=== PATIENT | female | born 1970 | race Caucasian/White ===

== ENCOUNTER 2018-11-16 12:03 | Emergency (ER) | payer MEDICARE, SELFPAY ==
[2018-11-16 12:04] VITALS: BP 115/78; PULSE 88; RESP 24; TEMP 36.6; O2SAT 100; BMI 22.3
--- NOTE | 2018-11-16 12:57 | ED.DCSUM_ITS ---
History of Present Illness Chief Complaint: Lower Extremity Injury Detail of Chief Complaint: Left thigh and groin pain Informant: Patient Onset: Weeks Context: Gradual Onset Current Severity: Severe Maximum Severity: Severe Narrative: Patient presents with severe pain to the left groin, left lower back, and left thigh. Pain has been gradual in onset and persistent over the past week. Patient has a history of chronic back pain and has had 3 level back surgery in the past. Patient was previously in pain management but has not been for the last 3 or 4 years. She did see her primary care physician who ordered a venous ultrasound of her leg. This was performed yesterday at [facility] with no evidence of DVT. Patient states her PCP did not write her anything for pain. She has been taking ibuprofen without improvement. Past Medical History - Allergies and Home Meds Allergies/Adverse Reactions: Allergies aloe vera [From Flexall] Adverse Reaction (Verified 11/16/18 12:06) Other aloe vera extract [From Flexall] Adverse Reaction (Verified 11/16/18 12:06) Other gabapentin Adverse Reaction (Verified 11/16/18 12:06) Other menthol [From Flexall] Adverse Reaction (Verified 11/16/18 12:06) Other pregabalin [From Lyrica] Adverse Reaction (Verified 11/16/18 12:06) Other vitamin E (d-alpha tocopherol) [From Flexall] Adverse Reaction (Verified 11/16/18 12:06) Other Primary Care Physician: López Mckeon [Primary Care Provider] - Prior records reviewed: Yes Past Medical History: - - Reviewed Smoking Status: Current every day smoker Review of Systems General: Denies: Chills, Fever Eyes: Denies: Visual changes - bilaterally ENT: Denies: Bilateral ear pain Cardiovascular: Denies: Chest pain Respiratory: Denies: Dyspnea Gastrointestinal: Denies: Abdominal pain Genitourinary: Denies: Dysuria Musculoskeletal: Reports: Myalgias, Arthralgias Neurological: Denies: Parasthesia, Numbness Physical Exam Vital Signs/Narrative: Vital Signs Temp Pulse Resp BP Pulse Ox 11/16/18 12:04 98 F 88 24 H 115/78 100 Inital Vital Signs reviewed: Yes General: Well nourished, Well developed Head: Normocephalic ENT: Moist mucous membranes Neck: Supple Cardiovascular: Regular rate, Regular rhythm Respiratory: No distress, CTA bilaterally Abdomen: Soft, Nontender, Normal bowel sounds Back: - - Minimal tenderness in the left low lumbar paraspinals. No midline tenderness. Extremities: - - Mild tenderness to the left groin and proximal anterior thigh. No palpable masses noted. No overlying skin changes. No leg edema is noted. Strong distal pulses are noted. Skin: Normal color Neurological: Alert, Oriented x3 Psychological: Tearful Diagnostic/Tx/Re-eval - Medical Decision Making Patient was initially given IM Toradol and 1 mg of IM Dilaudid. On repeat evaluation she reported little improvement. I spoke with the patient's primary care physician. He states the patient used to be in pain management but it has been several years. He had written for her to have x-rays of her upper back a couple weeks ago and she has yet to get that done. I did do an oars report and the patient has not had any narcotics written in quite some time. She was given a second dose of IM Dilaudid, p.o. Flexeril, and p.o. prednisone. At this time patient still complains of pain, but it is improving. I advised her that she likely needs to see pain management again and potentially have another MRI of her lumbar spine. There are no red flag warning signs that would indicate that she needs to have an emergent MRI at this time. I did advise her that she may be required to undergo physical therapy before they will repeat imaging studies. I will write her a prescription for Percocet, Flexeril, prednisone. I advised her that I can only write her 3 days of narcotic pain medication and she would need to see her primary care physician following this. I will refer her to Dr. Graham for pain management here locally. ED Disposition - Plan for ED Patient: Disposition: Home or Assisted Living Diagnosis: Lumbar strain, Radiculopathy, lumbar region Instructions: BACK PAIN w/ SCIATICA Prescriptions: cycloBENZAPRine HCl [Flexeril] 10 mg PO TID PRN #20 tablet PRN Reason: Muscle Spasm Oxycodone HCl/Acetaminophen [Percocet 5/325] 1 tablet PO Q6H PRN PRN 5 Days #20 tablet PRN Reason: Pain Prednisone 10 mg PO UD #33 tablet Referrals: López Mckeon [Primary Care Provider] - As soon as possible
[2018-11-16] MEDS: Ketorolac 60 MG/2 ML Vial IM (13:03)
[2018-11-16] MEDS: HYDROmorphone 1 MG/ML Syringe IM ×2 (13:03→14:53)
[2018-11-16] MEDS: predniSONE 20 MG Tablet 40 MG PO (14:53)
[2018-11-16] MEDS: cycloBENZAPRine HCl 10 MG Tablet PO (14:53)
== END 2018-11-16 15:58 | disposition home or self-care (01) ==
PROVIDERS: Emergency Provider Emergency Medicine; Family Provider Family Medicine; PCP Family Medicine
DX: S39.012A Strain of muscle, fascia and tendon of lower back, initial encounter (principal); X58.XXXA Exposure to other specified factors, initial encounter; Y93.9 Activity, unspecified; M54.16 Radiculopathy, lumbar region; F17.200 Nicotine dependence, unspecified, uncomplicated
CPT/HCPCS: 96372; 99283

== ENCOUNTER 2019-10-23 04:23 | Emergency (ER) | payer MEDICARE, MEDICAID, SELFPAY ==
[2019-10-23 04:25] VITALS: BP 103/63; PULSE 75; RESP 15; TEMP 36.2; O2SAT 97; BMI 24.4
--- NOTE | 2019-10-23 04:57 | ED.DCSUM_ITS ---
History of Present Illness Chief Complaint: Numb/Ting Narrative: Patient presenting secondary to generalized pain, numbness, chills, and a fall down stairs. Patient provides a very lengthy history, but ultimately she has a history of spinal issues with a 3 level spinal decompression and fusion in her lower back. She tells me that this did not go well and she basically had to relearn how to walk. She states that she has been in and out of pain management, and did not really have a good experience with that. She reports that she currently is not on any sort of pain management medications, but does take benzodiazepines for treatment of anxiety. Patient reports that she recently has been dealing with increasing issues with her legs giving out from underneath her, generalized numbness and a sensation of cold chills of her legs and arms with electric shocks that go up her legs and arms and into her neck. Patient tells me that she was descending stairs tonight with her dog, and secondary to a paroxysm of pain she suffered a fall. She denies hitting her head or loss of consciousness. She is not on any sort of anticoagulants. She reports generalized pain, but also has some new pain in her left paraspinal neck. Patient denies any fevers. She denies any nausea or vomiting. No bowel or bladder incontinence. No recent history of spinal injections, but she does have a history of in the past. No history of IV drug abuse. Review of systems otherwise negative. Past Medical History - Allergies and Home Meds Allergies/Adverse Reactions: Allergies aloe vera [From Flexall] Adverse Reaction (Verified 10/23/19 04:32) Other aloe vera extract [From Flexall] Adverse Reaction (Verified 10/23/19 04:32) Other gabapentin Adverse Reaction (Verified 10/23/19 04:32) Other menthol [From Flexall] Adverse Reaction (Verified 10/23/19 04:32) Other pregabalin [From Lyrica] Adverse Reaction (Verified 10/23/19 04:32) Other vitamin E (d-alpha tocopherol) [From Flexall] Adverse Reaction (Verified 10/23/19 04:32) Other Primary Care Physician: López Mckeon DO [Primary Care Provider] - Prior records reviewed: Yes Past Medical History: - - Chronic pain, anxiety Smoking Status: Current every day smoker Review of Systems All systems negative except as indicated General: Reports: Chills Eyes: Denies: Visual changes - bilaterally, Diplopia ENT: Denies: Rhinorrhea, Sore throat Cardiovascular: Denies: Chest pain, Palpitations Respiratory: Denies: Dyspnea, Cough, Dyspnea on exertion Gastrointestinal: Denies: Abdominal pain, Nausea, Vomiting, Diarrhea, Melena, Hematochezia Genitourinary: Denies: Dysuria, Hematuria, Frequency Musculoskeletal: Reports: Arthralgias, Neck pain, Back pain, Extremity Pain Skin: Denies: Rash, Wounds Neurological: Denies: Headache, Weakness, Numbness Physical Exam Vital Signs/Narrative: Vital Signs Temp Pulse Resp BP Pulse Ox 10/23/19 04:25 97.2 F L 75 15 103/63 97 Inital Vital Signs reviewed: Yes General: Well nourished, Well developed, No Acute Distress, - - Airway is patent, breath sounds are equal bilateral, peripheral pulses are 2+ and symmetric Head: Normocephalic, Atraumatic Eyes: Perrl, EOMI ENT: Moist mucous membranes, No rhinorrhea Neck: Supple, - - Normal range of motion, no midline tenderness, patient complains of left-sided paraspinal tenderness to palpation Cardiovascular: Regular rate, Regular rhythm, No murmurs Respiratory: No distress, CTA bilaterally, Chest nontender Abdomen: Soft, Nontender, Nondistended, Normal bowel sounds Back: - - Well-healed small lumbar spine incision. No midline tenderness or step-offs noted. Extremities: - - 2+ radial pulses, patient complains of diffuse pain to extreme light touch of the left extremity with no evidence of deformity. Normal range of motion. Complete active range of motion, the patient speaks with hand gestures when she talks. Lower extremities are atraumatic and again the patient complains of pain with extreme light touch. Normal range of motion of the foot ankle knee and hip with normal strength normal sensation over all dermatomes 1+ patellar and Achilles reflexes negative clonus and Babinski. 2+ DP and PT pulses. Skin: Normal color, No rash Neurological: Alert, Oriented x3, Cranial nerves II-XII grossly intact, Normal Strength, Normal Sensation Psychological: - - Patient is somewhat prefixed on her chronic pain issues, but does not appear to be responding to any sort of internal stimuli is not halluc inating, paranoid, suicidal or homicidal Diagnostic/Tx/Re-eval - Medical Decision Making Patient presented with a rather convoluted history, but ultimately I feel she is here secondary to pain complaints from falling and some difficulty with hearing. I did a evaluation of the patient's ears, she has evidence of swelling of the ear canals bilaterally. Patient will be placed on Cortisporin otic for this and will receive referral to ear nose and throat. Patient was given Toradol and Norflex in the emergency department and stated she had minimal improvement she was given a dose of oxycodone. Patient was continuing to complain that she has a feeling of numbness in her hands bilaterally but seems to have good dexterity as she was using her cell phone and speaking with hand gestures. Patient has no outward signs of trauma, there was no indication for imaging. Patient will be discharged with follow-up with ENT for her otitis externa, and with Dolobid for treatment of her pain. ED Disposition - Plan for ED Patient: Disposition: Home or Assisted Living Diagnosis: Otitis externa, Chronic neuropathic pain Instructions: ED Otitis Externa Prescriptions: Diflunisal [Dolobid] 500 mg PO BID #20 tab Prescription Printed Referrals: Alejandro Brothers MD [STAFF PHYSICIAN] - As soon as possible
[2019-10-23] MEDS: Orphenadrine 60 MG/2 ML Ampul IM (05:01)
[2019-10-23] MEDS: Ketorolac 30 MG/ML Syringe IM (05:03)
[2019-10-23 06:07] VITALS: BP 94/62; PULSE 71; RESP 15; O2SAT 97
[2019-10-23] MEDS: Neomycin/Polymyxin/Dexameth 5ML OPTH.BTL 4 DRP OTIC (06:11)
[2019-10-23] MEDS: oxyCODONE 5 MG Tablet 10 MG PO (06:11)
== END 2019-10-23 06:33 | disposition home or self-care (01) ==
PROVIDERS: Emergency Provider Emergency Medicine; PCP Family Medicine
DX: H60.93 Unspecified otitis externa, bilateral (principal); G89.29 Other chronic pain; F17.200 Nicotine dependence, unspecified, uncomplicated
CPT/HCPCS: 96372; 99284

== ENCOUNTER 2019-10-30 22:30 | Emergency (ER) | payer MEDICARE, MEDICAID, SELFPAY ==
[2019-10-30 22:33] VITALS: BP 98/64; PULSE 66; RESP 12; TEMP 35.9; O2SAT 100; BMI 23.0
--- NOTE | 2019-10-30 23:00 | ED.VIS.GEN ---
History of Present Illness Chief Complaint: Numb/Ting Informant: Patient Narrative: Patient stated she has chronic neuropathy and numbness and tingling in her upper and lower extremities. She has had neurologic work-up for this in the past. She was seen a week ago after a fall and persistent numbness and tingling. Stated she has tried Neurontin gabapentin and Lyrica in the past. None of them have helped her and she has had an allergy to Lyrica. She stated that she is at the end of her rope dealing with this numbness. She was in chronic pain management in the past but is no longer doing this. She does not have an appointment with neurology at this time. She stated she is unsure if she has had nerve conduction studies in the past. No history MS. Past Medical History - Allergies and Home Meds Allergies/Adverse Reactions: Allergies aloe vera [From Flexall] Adverse Reaction (Verified 10/30/19 22:37) Other aloe vera extract [From Flexall] Adverse Reaction (Verified 10/30/19 22:37) Other gabapentin Adverse Reaction (Verified 10/30/19 22:37) Other menthol [From Flexall] Adverse Reaction (Verified 10/30/19 22:37) Other pregabalin [From Lyrica] Adverse Reaction (Verified 10/30/19 22:37) Other vitamin E (d-alpha tocopherol) [From Flexall] Adverse Reaction (Verified 10/30/19 22:37) Other Primary Care Physician: López Mckeon DO [Primary Care Provider] - Prior records reviewed: Yes Past Medical History: - - Neuropathy Surgical History: - - Spinal decompression Smoking Status: Current every day smoker Drugs: None Review of Systems General: Denies: Chills, Fever, Sweats Eyes: Denies: Visual changes - bilaterally, Diplopia ENT: Denies: Rhinorrhea, Sore throat Cardiovascular: Denies: Chest pain, Palpitations Respiratory: Denies: Dyspnea, Cough, Dyspnea on exertion Gastrointestinal: Denies: Abdominal pain, Nausea, Vomiting, Diarrhea, Melena, Hematochezia Genitourinary: Denies: Dysuria, Hematuria, Frequency Musculoskeletal: Denies: Back pain, Extremity Pain Skin: Denies: Rash, Wounds Neurological: Reports: Parasthesia, Numbness. Denies: Headache, Weakness Physical Exam Vital Signs/Narrative: Vital Signs Temp Pulse Resp BP Pulse Ox 10/30/19 22:33 96.7 F L 66 12 98/64 100 General: Well nourished, Well developed, No Acute Distress Head: Normocephalic, Atraumatic Eyes: Perrl, EOMI ENT: Moist mucous membranes, No rhinorrhea Neck: Supple, Nontender Cardiovascular: Regular rate, Regular rhythm, No murmurs Respiratory: No distress, CTA bilaterally, Chest nontender Abdomen: Soft, Nontender, Nondistended, Normal bowel sounds Back: Nontender, Normal Inspection Extremities: Nontender, No edema Skin: Normal color, No rash Neurological: Alert, Oriented x3, Cranial nerves II-XII grossly intact, - - Patient states she has decreased sensation in her arms and legs through the light touch. She is moving them normally. Psychological: Normal affect, Normal Mood Diagnostic/Tx/Re-eval - Medical Decision Making Lab work ordered I do not feel she needs emergent imaging. This is a chronic neuropathy for over a year. The patient eloped prior to lab work coming back. She was agitated and annoyed. However I do not feel she has an emergent emergency cause of her symptoms currently. This is chronic ED Disposition - Plan for ED Patient: Disposition: Home or Assisted Living Diagnosis: Chronic neuropathic pain
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
== END 2019-10-30 23:10 | disposition home or self-care (01) ==
PROVIDERS: Emergency Provider Emergency Medicine; PCP Family Medicine
DX: G62.9 Polyneuropathy, unspecified (principal); F17.200 Nicotine dependence, unspecified, uncomplicated
CPT/HCPCS: 99283

== ENCOUNTER 2019-11-03 21:27 | Emergency (ER) | payer MEDICARE, MEDICAID, SELFPAY ==
[2019-11-03 21:30] VITALS: BP 181/143; PULSE 78; RESP 18; TEMP 36.8; O2SAT 96; BMI 21.0
--- NOTE | 2019-11-03 21:34 | EKG12_ITS ---
Test Reason : MENTAL HEALTH Blood Pressure : / mmHG Vent. Rate : 069 BPM Atrial Rate : 069 BPM P-R Int : 136 ms QRS Dur : 066 ms QT Int : 406 ms P-R-T Axes : 067 076 069 degrees QTc Int : 435 ms Normal sinus rhythm Low voltage QRS Septal infarct , age undetermined Abnormal ECG Confirmed by AURORA [place]RAEL, MARISOL ([id number]), editor magazine SANTIAGO ROSE ([id number]) on 11/06/2019 1:09:16 PM Referred By: KANDICE Confirmed By:MARISOL SIMON MD
--- NOTE | 2019-11-03 21:34 | ED.RN ---
PT UNWILLING TO ANSWER QUESTIONS AT THIS TIME. WILL CONTINUE TO ATTEMPT TO GET INFORMATION FROM HER.
[2019-11-03] MEDS: Ziprasidone IM 20 MG/ML VIAL IM (22:30)
[2019-11-03 22:31] LABS: Absolute Lymphocyte Count 2.98 X10^3/uL (0.83-4.51); Basophil# 0.03 X10^3/uL; Basophil% 0.4 % (0-1); Eosinophil# 0.11 X10^3/uL; Eosinophils% 1.6 % (0-5); Hematocrit 41.1 % (37-47); Hemoglobin 13.4 g/dL (12.0-15.0); Lymphocyte # 2.98 X10^3/ul (4.0); Lymphocyte % 44.7 % (19-41); Mean Corp Hgb Conc 32.6 g/dL (32-36); Mean Corpuscular Hgb 30.9 pg (27.0-32.0); Mean Corpuscular Volume 94.9 fL (81-99); Mean Platelet Vol. 11.7 fl (6.2-12.0); Monocyte# 0.51 X10^3/uL; Monocyte% 7.6 % (0-10); NRBC Flagged by Analyzer 0 % (0-5); Neutrophil # 3.02 X10^3/uL (2.7-7.7); Neutrophil % 45.4 % (47-70); Platelet Count 178 K/mm3 (150-450); RBC Distribution Width CV 15.9 % (11.6-14.6); Red Blood Count 4.33 M/mm3 (4.2-5.4); White Blood Count 6.7 K/mm3 (4.4-11.0)
[2019-11-03 22:40] LABS: Internal QC Validated? YES +Cl - CLEAR BKGD; Pregnancy, Serum, hCG Quali. NEGATIVE Negative
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
[2019-11-03 22:43] LABS: Alcohol, Blood (Medical)-Serum < 3.0 mg/dL
[2019-11-03 22:50] LABS: CPK Total, Creatine Kinase 33 U/L (26-192)
[2019-11-03 22:56] LABS: ALB/GLOB Ratio 1.2 RATIO (0.9-2.4); AST(SGOT) 10 U/L (15-37); Alanine Aminotransfer ALT/SGPT 22 U/L (13-56); Albumin, Serum 3.4 g/dL (3.2-5.0); Alkaline Phosphatase 71 U/L (45-117); Anion Gap 3 (5-15); BUN 22 mg/dL (7-18); BUN/Creat Ratio 27.2 RATIO (10-20); Calcium,Total 8.7 mg/dL (8.5-10.1); Chloride 113 mmol/L (98-107); Creatinine, Serum 0.81 mg/dL (0.55-1.02); EST Glomerular Filtration Rate 79 mL/min (>60); Est Glom Filt Rate - Afr Amer 96 mL/min (>60); Estimated Creatinine Clearance 70.95 ml/min; Globulin 2.9 g/dL (2.2-4.2); Glucose 103 mg/dL (74-106); Protein, Total 6.3 g/dL (6.4-8.2); Sodium Level 145 mmol/L (136-145); Thyroid Stim Hormone (TSH) 1.26 uIU/mL (0.358-3.74)
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
[2019-11-04] VITALS (14 sets, daily range): BP systolic 86–112; BP diastolic 50–95; PULSE 50–80; RESP 11–18; O2SAT 95–100
[2019-11-04] MEDS: LORazepam 2 MG/ML Syringe 1 MG IM ×2 (00:50→01:46)
[2019-11-04] MEDS: DiphenhydrAMINE 50 MG/ML Syringe 25 MG IM (00:50)
[2019-11-04 01:31] LABS: Bacteria 0 SEEN /hpf (None Seen); Mucous, Urine 0 SEEN /hpf (<or=2+); Red Blood Cells-Urine 0 SEEN /hpf (0-5); Squamous Epithelial Cells - UA 0 SEEN /hpf (5-10); White Blood Cells 0 SEEN /hpf (0-5)
[2019-11-04 01:34] LABS: Color, Urine Yellow (Yellow); Glucose, Dipstick Normal (Normal); Ketone-Dipstick Negative (Negative); Leukocyte Esterase-Dipstick 25 /ul (Negative); Nitrite-Dipstick Negative (Negative); Occult Blood-Urine Negative /ul (Negative); Protein-Dipstick Negative (Negative); Specific Gravity, Urine 1.015 (1.002-1.030); Urine Bilirubin Dipstick Negative (Negative); Urine Clarity Clear (Clear); Urine Urobilinogen Normal (Normal)
--- NOTE | 2019-11-04 01:46 | ED.RN ---
pt received 2nd dose of ativan 1mg I.M. to left deltoid. unable to chart on JUN, medication verified with Lucia Astudillo RN.
[2019-11-04 01:54] LABS: Amphetamine Urine VISTA NEGATIVE (<1000 ng/mL); Barbiturate Urine VISTA NEGATIVE (< 200 ng/mL); Benzodiazepine Urine VISTA POSITIVE (< 200 ng/mL); Cocaine Urine VISTA NEGATIVE (< 300 ng/mL); Ecstacy Urine VISTA NEGATIVE (< 500 ng/mL); Methadone Urine VISTA NEGATIVE (< 300 ng/mL); PCP Urine VISTA NEGATIVE (< 25 ng/mL); THC Urine VISTA NEGATIVE (< 50 ng/mL); Vista UDS pH Range 6
[2019-11-04] MEDS: LORazepam 2 MG/ML Syringe IM (02:41)
--- NOTE | 2019-11-04 07:28 | ED.RN ---
all restraints removed. pt provided with warm blankets. resting comfortably at present time. sitter in room
--- NOTE | 2019-11-04 07:38 | NURSING ---
FAXED CHART TO JOANIE MACHADO
--- NOTE | 2019-11-04 10:13 | ED.RN ---
pt irritated and non cooperative. pt willing to eat breakfast
--- NOTE | 2019-11-04 10:41 | NURSING ---
FAXED CHART TO YAN,
--- NOTE | 2019-11-04 10:48 | NURSING ---
TALKING TO CRISIS
--- NOTE | 2019-11-04 11:40 | CM.ED ---
SOCIAL WORK Collaboration with Krissy from Crisis. Per Krissy, unable to complete full assessment with patient. Patient does have insurance. This worker to take over case and assess for inpatient psych needs. Carly Osorio, INFORMATICS PHYSICIAN, [employer]
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
--- NOTE | 2019-11-04 13:31 | ED.RN ---
pt cooperative at this time. does become very angry and threatening when talking about plans. with this rn pt cooperative albeit abrasive
--- NOTE | 2019-11-04 13:46 | CM.ED ---
SOCIAL WORK Referral called and faxed to [facility]. Intake to review referral and get back to this worker. Carly Osorio, BELLHOP SERVICE CAPTAIN, PRIVATE DUTY AIDE
--- NOTE | 2019-11-04 14:04 | ED.RN ---
this rn attempting to talk to pt. pt in this rns face. becomes very abrasive and very loud. pt threatening I'll fucking take you all out. pt states I am not staying here all night again. pt concerned about her dog at home. this rn attempted to problem solve with pt regarding care for dog. pt refuses to discuss options
[2019-11-04] MEDS: Ziprasidone IM 20 MG/ML VIAL IM (14:20)
--- NOTE | 2019-11-04 14:39 | ED.RN ---
this rn went in to inform pt of the plan which included a pink slip and a plan to transfer to a psychiatric facility. pt becomes extremely agitated and angry. pt yelling and screaming at staff and threatening. [facility] contacted. 2 officers in department. pt screaming at all staff. pt states I am not staying here. After talking with pt pt does agree to [facility]y . this rn informed pt that if she cooperates we will not restrain her
--- NOTE | 2019-11-04 15:00 | CM.ED ---
SOCIAL WORK Received call from [place] with questions regarding when patient was last given Geodon or Ativan. Updated on last shot of Geodon at 14:30. Per [facility] worker, would be unable to accept patient until 4 hours after time of last shot. Intake to call this worker back after review with doctor. Carly Osorio, AIR BRAKE MECHANIC, LEATHER PIECE INSPECTOR
--- NOTE | 2019-11-04 18:32 | CM.ED ---
SOCIAL WORK Call from [facility]. Patient accepted by Dr. Joseph to the ITU (Intensive treatment unit). Nurse to call report to . Crisis Specialist to set up transport. Copy of [facility] faxed per request. Plan: [facility] Carly Osorio, BULL LADLE TENDER, FITTER HAND
--- NOTE | 2019-11-04 21:34 | CT_ITS ---
STUDY: CT BRAIN WITHOUT CONTRAST REASON FOR EXAM: Female, 49 years old. CHANGE IN MENTAL Status, suicidal IDEATION RADIATION DOSAGE (If Supplied By Facility): CTDIvol = ( 44.99 ) mGy, DLP = ( 796.11 ) mGycm TECHNIQUE: Transaxial CT imaging of the brain was performed without administration of intravenous contrast material. Individualized dose optimization techniques were used for this CT. COMPARISON: No relevant priors. FINDINGS: Normal soft tissue structures. Normal calvarium. Normal size ventricles and extra-axial spaces for the patient''s age. Normal white matter tracts of the cerebral hemispheres. Normal basal ganglia and thalami. Normal brainstem. Normal cerebellum. There is no intracranial hemorrhage. There are no findings of an acute ischemic infarction. Normal visualized paranasal sinuses. CT/Brain/Head without Contrast IMPRESSION: Normal unenhanced CT scan of the brain. Electronically Signed: Mohan Bang MD at 5:59 EDT , Service support ,
== END 2019-11-04 21:27 ==
PROVIDERS: Emergency Medicine; Emergency Provider Emergency Medicine; PCP Family Medicine
DX: R45.850 Homicidal ideations (principal); F19.10 Other psychoactive substance abuse, uncomplicated; F17.200 Nicotine dependence, unspecified, uncomplicated
CPT/HCPCS: 70450; 80053; 80307; 80320; 81001; 82550; 84443; 84703; 85025; 93005; 96372; 99284; G0480

== ENCOUNTER → 2019-12-20 14:55 | Outpatient (CLI) | payer MEDICARE, SELFPAY ==
[2019-12-20 19:12] LABS: Vitamin B12 699 pg/mL (211-911)
[2019-12-20 19:40] LABS: ALB/GLOB Ratio 1.1 RATIO (0.9-2.4); AST(SGOT) 14 U/L (15-37); Alanine Aminotransfer ALT/SGPT 19 U/L (13-56); Albumin, Serum 4.2 g/dL (3.2-5.0); Alkaline Phosphatase 82 U/L (45-117); Anion Gap 4 (5-15); BUN 18 mg/dL (7-18); BUN/Creat Ratio 22.7 RATIO (10-20); Calcium,Total 9.4 mg/dL (8.5-10.1); Chloride 108 mmol/L (98-107); Creatinine, Serum 0.79 mg/dL (0.55-1.02); EST Glomerular Filtration Rate 81 mL/min (>60); Est Glom Filt Rate - Afr Amer 98 mL/min (>60); Free T3 1.7 pg/mL (2.18-3.98); Globulin 3.8 g/dL (2.2-4.2); Glucose 72 mg/dL (74-106); Potassium 3.6 mmol/L (3.5-5.1); Sodium Level 142 mmol/L (136-145); T4 Total, Thyroxin 5.9 ug/dL (4.8-13.9)
[2019-12-26 03:06] LABS: Ceruloplasmin 29.2 mg/dL (19.0-39.0)
[2019-12-26 09:45] LABS: Arsenic 7245 4 ug/L (2-23); Copper, Serum or Plasma 167 ug/dL (72-166); Lead, Blood 1 ug/dL (0-4); Mercury, Blood 85324 < 1.0 ug/L (0.0-14.9)
== END ==
PROVIDERS: PCP Family Medicine; Referring Provider Family Medicine; Visit Provider Family Medicine
DX: R20.0 Anesthesia of skin (principal); R20.2 Paresthesia of skin; R63.4 Abnormal weight loss; T56.91 Toxic effect of unspecified metal, accidental (unintentional)
CPT/HCPCS: 36415; 80053; 82175; 82390; 82525; 82607; 83655; 83735; 83825; 84436; 84481

== ENCOUNTER → 2020-03-21 14:19 | Outpatient (CLI) | payer MEDICARE, SELFPAY ==
--- NOTE | 2020-03-21 14:25 | RAD_ITS ---
STUDY: X-RAY CHEST REASON FOR EXAM: Female, 49 years old. weight loss, smoker, patient also complains of right shoulder pain TECHNIQUE: PA and lateral views of the chest. COMPARISON: None. FINDINGS: The lungs are clear and expanded. There is no demonstrated pleural abnormality. Normal size heart. Normal mediastinum and ana. Normal visualized pulmonary arteries. Normal visualized aortic arch and descending thoracic aorta. Similar minimal scoliosis of the thoracic spine. Normal visualized ribs, clavicles, and shoulders. There is no demonstrated abnormality of the visualized soft tissue structures of the upper abdomen. RAD/Chest PA and Lateral IMPRESSION: Stable, nonacute x-ray examination of the chest. Electronically Signed: Damian Graves MD ([place]) at 9:40 EST , Service support ,
== END ==
PROVIDERS: PCP Family Medicine; Referring Provider Family Medicine; Visit Provider Family Medicine
DX: F17.200 Nicotine dependence, unspecified, uncomplicated (principal); R63.4 Abnormal weight loss
CPT/HCPCS: 71046

== ENCOUNTER 2023-01-22 16:51 | Emergency (ER) | payer MEDICARE, MEDICAID, SELFPAY ==
[2023-01-22 16:54] VITALS: BP 122/85; PULSE 96; RESP 16; TEMP 36.3; BMI 28.4
[2023-01-22 16:57] VITALS: BP 122/85; PULSE 96; RESP 16; TEMP 36.3
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
--- NOTE | 2023-01-22 17:45 | RAD_ITS ---
INDICATION: injury EXAMINATION/TECHNIQUE: X-RAY - LEFT XR Foot Min 3 Views 3 VIEWS COMPARISON: No relevant prior comparison study available FINDINGS: SOFT TISSUES: No soft tissue swelling or gas. No radiopaque foreign body. There is a laceration of the soft tissues medial to the great toe proximal phalanx, distal aspect. BONES/JOINTS: No acute fracture or subluxation.. Normal alignment. Preservation of the joint space.. No sclerotic or destructive changes observed. RAD/Foot min 3 Views IMPRESSION: No fracture or malalignment. No radiopaque foreign bodies. Electronically Signed: James Beckett MD at 18:06 EDT ,
[2023-01-22] MEDS: Diphth,Pertuss(Acell),Tet Vac 0.5 ML Vial IM (17:49)
[2023-01-22 18:26] VITALS: BP 126/81; PULSE 92; RESP 18; O2SAT 96
== END 2023-01-22 18:39 | disposition home or self-care (01) ==
PROVIDERS: Emergency Provider Emergency Medicine; Visit Provider Emergency Medicine
DX: S91.312A Laceration without foreign body, left foot, initial encounter (principal); F17.210 Nicotine dependence, cigarettes, uncomplicated; X58.XXXA Exposure to other specified factors, initial encounter
CPT/HCPCS: 73630; 90715; 99283